=== PATIENT | male | born 1980 | race Caucasian/White ===

== ENCOUNTER 2017-08-29 09:55 | Emergency (ER) | payer OTHER ==
[2017-08-29 10:20] LABS: ABS Basophils 0.1 10^3/ul (0-0.2); ABS Eosinophils 0.2 10^3/ul (0-0.6); ABS Lymphocytes 1.8 10^3/ul (1.0-4.8); ABS Monocytes 0.5 10^3/ul (0-0.8); ABS Neutrophils 3.7 10^3/ul (1.5-7.7); ABS Nucleated RBC 0 10^3/ul; Eosinophil % 2.9 % (0-6); Hematocrit 45 % (42-52); Hemoglobin 15.5 g/dl (14.0-18.0); Lymphocyte % 28.1 % (25-47); Mean Corpuscular HGB Conc 35 g/dl (31-36); Mean Corpuscular Hemoglobin 29 pg (27-31); Mean Corpuscular Volume 84 fL (80-94); Mean Platelet Volume 8.7 um3 (7.4-10.4); Nucleated Red Blood Cells % 0.1; Platelet Count 200 10^3/ul (150-450); Red Blood Count 5.33 10^6/ul (4.00-5.40); Red Cell Distribution Width 14 % (10.5-15); White Blood Count 6.3 10^3/ul (3.5-10.8)
--- NOTE | 2017-08-29 10:26 | ED ---
HPI Chest Pain - HPI Summary HPI Summary: This patient is a 36 year old M presenting to ED with a chief complaint of chest pain/tightness since 1929 last night. The patient flew in from [place] (spent 2 days there) and went swimming in [facility] with his family. The patient was having dinner at home during onset. The CC is described as constant, non-radiating, racing HR, feels like heart burn, heart fluttering, fast half beats in between beats, and it felt like muscle spasms in my abdomen. The patient rates the pain 2/10 in severity. Symptoms aggravated by nothing. Symptoms alleviated by nothing. 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 He reports ability to do strenuous exercise but still feels tachycardic. Patient denies SOB, abdominal pain, nausea , calf pain/leg pain, and DE LEON. He reports he has had no prior episodes similar to this. Current vitals include 91 BPM, 98 O2 sat, and BP 145/82. Home Medications Medication Instructions Recorded Confirmed Type Aspirin/Acetaminophen/Caffeine 2 each PO Q12HR PRN 08/29/17 08/29/17 History [Excedrin Migraine Caplet] - History of Current Complaint Chief Complaint: EDChestPainROMI Time Seen by Provider: 08/29/17 10:04 Hx Obtained From: Patient Onset/Duration: Started Days Ago - 1929 yesterday, Still Present Timing: Constant, Lasting Days - 1929 yesterday Initial Severity: Mild Current Severity: Mild Pain Intensity: 2 Pain Scale Used: 0-10 Numeric Chest Pain Radiates: No Character: Tightness Aggravating Factor(s): Nothing Alleviating Factor(s): Nothing Associated Signs and Symptoms: Positive: Other: - Patient reports light- headedness, 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 He reports ability to do strenuous exercise but still feels tachycardic. Patient denies SOB, abdominal, nausea, calf pain/leg pain, and DE LEON. - Allergy/Home Medications Allergies/Adverse Reactions: Allergies Allergy/AdvReac Type Severity Reaction Status Date / Time No Known Allergies Allergy Verified 08/29/17 09:57 Home Medications: Home Medications Aspirin/Acetaminophen/Caffeine [Excedrin Migraine Caplet] 2 each PO Q12HR PRN [History Confirmed 08/29/17] PMH/Surg Hx/FS Hx/Imm Hx Endocrine/Hematology History: Denies: Hx Diabetes Cardiovascular History: Denies: Hx Coronary Artery Disease, Hx Hypertension Neurological History: Reports: Hx Migraine Infectious Disease History: No Infectious Disease History: Denies: Traveled Outside the [place] in Last 30 Days - Family History Known Family History: Positive: Other Family History: maternal grandfather - heart valve replacement; denies heart disease in the family - Social History Occupation: Employed Full-time Lives: With Family Alcohol Use: None Hx Substance Use: No Hx Tobacco Use: No Review of Systems Positive: Chest Pain - tightness, Other - tachycardic; constant, non-radiating, racing HR, feels like heart burn, heart fluttering, fast half beats in between beats Negative: Shortness Of Breath Negative: Abdominal Pain, Nausea Positive: Other - multiple lipomas on his bilateral forearms, stubbed toe; denies calf pain/leg pain Neurological: Other - light-headedness Negative: Headache All Other Systems Reviewed And Are Negative: Yes Physical Exam - Summary Physical Exam Summary: Appearance: Well-appearing, moderate pain distress, well-nourished, HR 90-120s Skin: Warm, color reflects adequate perfusion, dry Head: Normal Head/Face inspection, atraumatic Eyes: Conjunctiva clear ENT: Normal inspection Neck: Supple, no nodes, no JVD Respiratory: Lungs clear, normal breath sounds, no respiratory distress Cardio: RRR, No murmur, pulses normal, brisk capillary refill Abdomen: Soft, nontender Bowel sounds: Present Musculoskeletal: Strength Intact/ROM intact, no calf tenderness, no edema. Multiple lipoma on bilateral forearm (most 3cm, max 5 cm) Psychological: Normal Neuro: Alert, muscle tone normal, no focal deficit Triage Information Reviewed: Yes Vital Signs On Initial Exam: Initial Vitals Temp Pulse Resp BP Pulse Ox 98.4 F 119 16 129/95 98 08/29/17 09:57 08/29/17 09:57 08/29/17 09:57 08/29/17 09:57 08/29/17 09:57 Vital Signs Reviewed: Yes Diagnostics - Vital Signs Vital Signs Temp Pulse Resp BP Pulse Ox 08/29/17 09:57 98.4 F 119 16 129/95 98 - Laboratory Result Diagrams: 08/29/17 10:10 08/29/17 10:10 Lab Statement: Any lab studies that have been ordered have been reviewed, and results considered in the medical decision making process. - Radiology CXR Radiology Interpretation Completed By: Radiologist - No evidence for acute intrathoracic disease. ED physician has reviewed this radiology report. CTA chest Radiology Interpretation Completed By: Radiologist - No evidence for pulmonary embolism. Low suspicion 4 mm subpleural nodule at the anteromedial basal segment of the LEFT lower lobe. Consider noncontrast CT follow-up in 6 months in setting of risk factors for bronchogenic carcinoma or 12 months in absence of significant risk factors for bronchogenic carcinoma. ED physician has reviewed this radiology report. - EKG 1005 Cardiac Rate: Other Rate - Afib 108 BPM EKG Rhythm: Atrial Fibrillation ST Segment: Non-Specific Ectopy: None EKG Interpretation: normal IVCT, normal QTc, normal axis EKG Comparison: Other - no prior to compare Re-Evaluation - Re-Evaluation First Eval Re-Evaluation Time: 11:15 Comment: Dr. Mathis will see him in the ED. Second Eval Re-Evaluation Time: 12:29 Comment: The patient currently has no CP. Discussed findings of pulmonary nodules. Discussed discharge plan with the patient. The patient understands and agrees. Chest Pain Course/Dx - Course Assessment/Plan: CXR reveals no evidence for acute intrathoracic disease. CTA chest reveals no evidence for pulmonary embolism. Low suspicion 4 mm subpleural nodule at the anteromedial basal segment of the LEFT lower lobe. Consider noncontrast CT follow-up in 6 months in setting of risk factors for bronchogenic carcinoma or 12 months in absence of significant risk factors for bronchogenic carcinoma. Consulted Dr. Mathis at 1113 who will see the patient in the ED. High blood pressure noted. Pt medications reviewed this visit. The patient will be discharged with instructions to follow up with Dr. Hawkins. The patient is agreeable with this plan. - Chest Pain Differential Diagnosis/HQI/PQRI: Other: - elevated blood pressure without diagnosis of hypertension, New onset afib - Diagnoses Provider Diagnoses: Elevated blood pressure reading without diagnosis of hypertension, New onset a- fib - Provider Notifications Discussed Care Of Patient With: Sheba Mathis Time Discussed With Above Provider: 11:13 Instructed by Provider To: Other - Consulted Dr. Mathis at 1113 who will see the patient in the ED. Discharge - Sign-Out/Discharge Documenting (check all that apply): Patient Departure - Discharge Plan Condition: Good Disposition: HOME Prescriptions: Apixaban* [Eliquis*] 5 mg PO BID #14 tab Metoprolol Tartrate TAB* [Lopressor TAB*] 12.5 mg PO BID #14 tab Patient Education Materials: A-fib (Atrial Fibrillation) (GEN) Referrals: Raji Hawkins MD [Medical Doctor] - 08/30/17 12:45 pm (Medical Office Building [address] (Office at the hospital)) Petros Kent MD [Primary Care Provider] - Additional Instructions: 1. Activity as tolerated. 2. Return to the ER if you pass out, are significantly lightheaded or have any other concerning issues. 3. Follow up with Dr. Hawkins as scheduled and with Dr. Kent in the next 1-2 weeks.
[2017-08-29 10:31] LABS: INR 0.91 (0.77-1.02)
[2017-08-29 10:40] LABS: EGFR Non-African American 135.8 (>60)
[2017-08-29] MEDS ORDERED: Iohexol 350* (CONTRAST) 500 ML MDV IV ONE (10:47)
--- NOTE | 2017-08-29 11:01 | RAD ---
Indication: Chest pain/tightness. Palpitations. Comparison: No relevant prior exams available on the [facility] PACS for comparison. Technique: Upright AP 1019 hours Report: Clear lungs and pleural spaces. Negative for pneumothorax. The heart, pulmonary vasculature, and mediastinal contours are unremarkable. Unremarkable osseous structures and soft tissue contours. IMPRESSION: #. No evidence for acute intrathoracic disease.
--- NOTE | 2017-08-29 11:40 | RAD ---
INDICATION: New onset atrial fibrillation. Recent air travel. Chest tightness and pain. Palpitations. Assess for PE. COMPARISON: August 29, 2017 chest radiograph TECHNIQUE: Multidetector CT images were obtained from the lung apices to the upper abdomen with 80 mL Omnipaque 350 IV contrast. Pulmonary angiogram protocol. Multiplanar reformation including with maximum intensity projection. REPORT: 4 mm noncalcified subpleural nodule at the anteromedial basal segment of the LEFT lower lobe peripherally reference image 47. The lungs and pleural spaces are otherwise clear. Normal variant residual thymic tissue at the anterior mediastinum. Negative for thoracic lymphadenopathy, cardiomegaly, pericardial effusion. Motion artifact mildly degrades image quality of the CT pulmonary angiogram particularly at the LEFT lower lobe. No compelling filling defects are identified within the main to segmental and subsegmental pulmonary arteries to indicate pulmonary embolism. Limited images through the upper abdomen are remarkable for a parapelvic cyst at the RIGHT kidney and small cortical cyst at the LEFT kidney. 14.5 cm cephalocaudal mildly enlarged spleen. Negative for suspicious thoracic osseous lesions. IMPRESSION: #. No evidence for pulmonary embolism. #. Low suspicion 4 mm subpleural nodule at the anteromedial basal segment of the LEFT lower lobe. Consider noncontrast CT follow-up in 6 months in setting of risk factors for bronchogenic carcinoma or 12 months in absence of significant risk factors for bronchogenic carcinoma.
[2017-08-29] MEDS ORDERED: Metoprolol Tartrate TAB* 25 MG PO ONE (11:56)
[2017-08-29] MEDS ORDERED: Apixaban* 5 MG TAB PO ONE (11:57)
[2017-08-29 13:04] VITALS: BP 138/95
--- NOTE | 2017-08-30 12:15 | CONS ---
CC: Dr. Kent; Dr. Hawkins * CONSULTATION REPORT: DATE OF CONSULT: 08/29/17 - EMERGENCY DEPT PRIMARY CARE PROVIDER: Dr. Kent. CHIEF COMPLAINT: Palpitations and pressure within the chest. HISTORY OF PRESENT ILLNESS: Mr. Kuhn is a 36-year-old male, who approximately a week and a half ago flew out to [place]. He remained in [place] for approximately 1 week. While there, he did do some hiking at altitude. Approximately 48 hours prior to presentation, he flew to a wedding and 48 hours after that, he flew home. The patient was swimming in the [place] with his child at approximately 5 p.m. on the night prior to ER evaluation and when he got out of the [place], he noted that his lower chest looked like he was having muscle spasms in the subxiphoid area. The patient also felt that his heart was racing and somewhat irregular. He felt a slight pressure within his chest, but denied any pain. The patient denied any lightheadedness associated with this. The patient did have 1 episode where he bent down and then stood up quickly and with this, he felt more dizzy than he typically would. Because of the continued palpitations, the patient presented to the emergency room for evaluation. At this point, the patient continues to feel an irregular heart rate. He denies any pain. He denies any shortness of breath. Outside of the irregular heartbeat, the patient feels well. PAST MEDICAL HISTORY: Migraines. PAST SURGICAL HISTORY: Vasectomy, wisdom teeth extraction. MEDICATIONS: Excedrin Migraine p.r.n. ALLERGIES: No known drug allergies. FAMILY HISTORY: Mom and dad are both living and healthy. SOCIAL HISTORY: The patient does not smoke. He drinks alcohol on occasion. He did have 1-1/2 alcoholic beverages approximately 24 hours prior to this episode. He is . REVIEW OF SYSTEMS: A complete 11-system review of systems was obtained. Pertinent positives and negatives as per HPI and otherwise negative. PHYSICAL EXAM: Blood pressure 134/88, pulse 87, respirations 20, temp 98.4, and O2 sat 98% on room air. General: The patient is a well-developed, young, thin male sitting up in the stretcher, in no acute distress. HEENT: Pupils are equal and round. Extraocular muscles are intact. Oropharynx is clear. Oral mucosa is moist. There is no submandibular, cervical, or supraclavicular adenopathy. Thyroid is not enlarged. No thyroid nodules noted. Cardiac: Normal S1 and S2. Heart rate is irregularly irregular, mildly tachycardic. There is no lower extremity edema. Pulmonary: Lungs are clear to auscultation bilaterally. Abdomen: Bowel sounds present. Abdomen is soft, nontender, and nondistended. Musculoskeletal: There is no cyanosis or clubbing of the digits. There is full active range of motion of all 4 extremities. Skin is warm and dry. There are no rashes. Neuro: Cranial nerves II through XII are grossly intact. Sensation is intact to light touch throughout. Strength is 5/5 and symmetrical in the upper and lower extremities bilaterally. Psych: The patient is alert and oriented x3. Affect appears appropriate. DIAGNOSTIC STUDIES/LAB DATA: WBC 6.3, hemoglobin 15.5, hematocrit 45, platelets 200. INR 0.91, D-dimer less than 200. Sodium 139, potassium 3.9, chloride 106, CO2 of 24, BUN 18, creatinine 0.66, glucose 104, lactic acid 0.6, calcium 9.3, magnesium 1.9. Bilirubin 0.8, AST 31, ALT 63, alk phos 63. CPK 47 , CK-MB 0.7. Troponin 0. BNP 275. Albumin 4.4. EKG reveals atrial fibrillation with a rate of 108. Chest x-ray: No evidence for acute intrathoracic disease. CTA chest: No evidence for pulmonary embolism. There is a low suspicion 4-mm subpleural nodule at the anteromedial basal segment of the left lower lobe. Noncontrast CT followup should be obtained in 12 months as there are no significant risk factors for bronchogenic carcinoma. ASSESSMENT AND PLAN: Mr. Kuhn is a 36-year-old healthy male, who presents to the emergency room in atrial fibrillation with rapid ventricular rate. 1. Atrial fibrillation with rapid ventricular rate. At this point, the patient is hemodynamically stable. He is not significantly symptomatic from the atrial fibrillation. The patient has not been treated with any medications in the emergency room at this point. The patient will be started on metoprolol tartrate 12.5 mg p.o. twice daily and Eliquis 5 mg p.o. twice daily. I spoke with Dr. Hawkins, who is willing to see the patient in consultation as an outpatient on 08/30/17 at 12:45 p.m. The patient is in agreement with the plan to be discharged from the emergency room and follow up with Dr. Hawkins. The patient has been instructed to return to the emergency room if he were to have any episodes of loss of consciousness, dizziness, or any other concerning symptoms. 2. Pulmonary nodule. I have informed the patient of the 4-mm pulmonary nodule. I have also explained that he should have a followup CT in approximately 12 months to ensure stability. 3. Migraines. The patient will continue to use intermittent Excedrin Migraine. 4. The patient will be discharged home. [id number]/CPS #: [id number] KAM
== END 2017-08-29 13:02 | disposition home or self-care (01) ==
LOC: ED 09:55
DX: I48.91 Unspecified atrial fibrillation (principal); R03.0 Elevated blood-pressure reading, without diagnosis of hypertension; R91.1 Solitary pulmonary nodule; R42 Dizziness and giddiness; D17.22 Benign lipomatous neoplasm of skin and subcutaneous tissue of left arm; D17.21 Benign lipomatous neoplasm of skin and subcutaneous tissue of right arm; G43.909 Migraine, unspecified, not intractable, without status migrainosus; Z82.49 Family history of ischemic heart disease and other diseases of the circulatory system
CPT/HCPCS: 36415; 71045; 71275; 80053; 82550; 82553; 83605; 83735; 83880; 84443; 84484; 85025; 85379; 85610; 85730; 93005; 99283; Q9967

== ENCOUNTER 2018-11-19 09:38 | Emergency (ER) | payer OTHER ==
[2018-11-19] MEDS ORDERED: NS 0.9% 1000 ML** 1,000 ML IV ONE (09:57)
[2018-11-19 10:16] LABS: ABS Eosinophils 0.1 10^3/ul (0-0.6); ABS Lymphocytes 1.4 10^3/ul (1.0-4.8); ABS Monocytes 0.6 10^3/ul (0-0.8); ABS Neutrophils 2.5 10^3/ul (1.5-7.7); Eosinophil % 3.1 %; Hematocrit 45 % (42-52); Hemoglobin 16.1 g/dL (14.0-18.0); Lymphocyte % 30.7 %; Mean Corpuscular HGB Conc 35 g/dL (31-36); Mean Corpuscular Hemoglobin 30 pg (27-31); Mean Corpuscular Volume 84 fL (80-94); Mean Platelet Volume 8.6 fL (7.4-10.4); Nucleated Red Blood Cells % 0.1; Platelet Count 199 10^3/uL (150-450); Red Blood Count 5.42 10^6 /uL (4.18-5.48); Red Cell Distribution Width 13 % (10-15); White Blood Count 4.7 10^3/uL (3.5-10.8)
[2018-11-19 10:17] LABS: INR 1.01 (0.82-1.09)
--- NOTE | 2018-11-19 10:25 | ED ---
HPI Cardiac - HPI Summary HPI Summary: 38 year old male reports to the ED with a chief complaint of mild burning chest pain starting this morning. His heart felt double timed this morning when he woke up, and he had pain in his chest of severity 2/10. He reports indigestion starting yesterday and intense intestinal pain yesterday. Patient denies pain or tension in his legs. Had very similar symptoms when he had aFib last year. He flew internationally a week ago. Does not smoke, rarely drinks alcohol. Does not do recreational drugs. Medications reviewed. Allergies noted. - History of Current Complaint Chief Complaint: EDDysrhythmPalp Stated Complaint: AFIB PER PT Time Seen by Provider: 11/19/18 10:00 Hx Obtained From: Patient Onset/Duration: Started Hours Ago, Still Present Timing: Constant, Lasting Hours Initial Severity: Mild Current Severity: Mild Pain Intensity: 2 Pain Scale Used: 0-10 Numeric Chest Pain Location: Diffuse Character: Burning Aggravating Factor(s): Nothing Associated Signs and Symptoms: Positive: Chest Pain, Abdominal Pain, Other: - irregular heart rhythm Related History: Similar Episode/Dx as: - Last year afib - Allergy/Home Medications Allergies/Adverse Reactions: Allergies Allergy/AdvReac Type Severity Reaction Status Date / Time No Known Allergies Allergy Verified 11/19/18 10:01 PMH/Surg Hx/FS Hx/Imm Hx Endocrine/Hematology History: Denies: Hx Diabetes Cardiovascular History: Reports: Hx Angina Denies: Hx Coronary Artery Disease, Hx Hypercholesterolemia, Hx Hypertension , Hx Myocardial Infarction, Hx Valvular Heart Disease Respiratory History: Denies: Hx Asthma, Hx Chronic Obstructive Pulmonary Disease (COPD) Neurological History: Reports: Hx Migraine Infectious Disease History: No Infectious Disease History: Denies: Traveled Outside the [place] in Last 30 Days - Family History Known Family History: Positive: Other Family History: maternal grandfather - heart valve replacement; denies heart disease in the family - Social History Alcohol Use: Rare Hx Substance Use: No Substance Use Type: Reports: None Hx Tobacco Use: No Smoking Status (MU): Never Smoked Tobacco Review of Systems Positive: Chest Pain, Other - irregularly irregular heart rhythm Positive: Abdominal Pain Negative: Myalgia, Edema All Other Systems Reviewed And Are Negative: Yes Physical Exam - Summary Physical Exam Summary: Constitutional: Well-developed, Well-nourished, Alert. (-) Distressed Skin: Warm, Dry HENT: Normocephalic; Atraumatic Eyes: Conjunctiva normal Neck: Musculoskeletal ROM normal neck. (-) JVD, (-) Stridor, (-) Tracheal deviation Cardio: Heart sounds normal; Intact distal pulses; Radial pulses are 2+ and symmetric. (-) Murmur. Venous cords palpated. Irregularly irregular heart rhythm. Tachycardic. Pulmonary/Chest wall: Effort normal. (-) Respiratory distress, (-) Wheezes, (-) Rales Abd: Soft, (-) tenderness, (-) Distension, (-) Guarding, (-) Rebound Musculoskeletal: (-) Edema, Good pulses bilaterally in radius, No calf tenderness, No pain with dorsiflexion of foot. Lymph: (-) Cervical adenopathy Neuro: Alert, Oriented x3 Psych: Mood and affect Normal Triage Information Reviewed: Yes Vital Signs On Initial Exam: Initial Vitals Temp Pulse Resp BP Pulse Ox 97.3 F 90 14 131/79 100 11/19/18 09:43 11/19/18 09:43 11/19/18 09:43 11/19/18 09:43 11/19/18 09:43 Vital Signs Reviewed: Yes Procedures - Sedation Patient Received Moderate/Deep Sedation with Procedure: No Diagnostics - Vital Signs Vital Signs Temp Pulse Resp BP Pulse Ox 11/19/18 09:43 97.3 F 90 14 131/79 100 - Laboratory Lab Results: Lab Results 11/19/18 11/19/18 Range/Units 09:59 09:59 WBC 4.7 (3.5-10.8) 10^3/uL RBC 5.42 (4.18-5.48) 10^6 /uL Hgb 16.1 (14.0-18.0) g/dL Hct 45 (42-52) % MCV 84 (80-94) fL MCH 30 (27-31) pg MCHC 35 (31-36) g/dL RDW 13 (10-15) % Plt Count 199 (150-450) 10^3/uL MPV 8.6 (7.4-10.4) fL Neut % (Auto) 53.5 % Lymph % (Auto) 30.7 % Garza % (Auto) 11.8 % Eos % (Auto) 3.1 % Baso % (Auto) 0.9 % Absolute Neuts (auto) 2.5 (1.5-7.7) 10^3/ul Absolute Lymphs (auto) 1.4 (1.0-4.8) 10^3/ul Absolute Monos (auto) 0.6 (0-0.8) 10^3/ul Absolute Eos (auto) 0.1 (0-0.6) 10^3/ul Absolute Basos (auto) 0.0 (0-0.2) 10^3/ul Absolute Nucleated RBC 0.0 10^3/ul Nucleated RBC % 0.1 INR (Anticoag Therapy) 1.01 (0.82-1.09) Result Diagrams: 11/19/18 09:59 11/19/18 09:59 Lab Statement: Any lab studies that have been ordered have been reviewed, and results considered in the medical decision making process. - Radiology CXR Radiology Interpretation Completed By: Radiologist Summary of Radiographic Findings: CXR shows no evidence for active pulmonary disease. An ED physician has reviewed this report. Chest Thoracic XR Radiology Interpretation Completed By: Radiologist Summary of Radiographic Findings: Chest/Thoracic XR shows: 1. NO EVIDENCE FOR PULMONARY EMBOLISM. 2. SMALL LEFT LOWER LOBE PULMONARY NODULE, UNCHANGED. IF THE PATIENT HAS RISK FACTORS. RECOMMEND A FOLLOW-UP LOW-DOSE NONCONTRAST CT OF THE CHEST IN ONE YEARS TIME. 3. SPLENOMEGALY, UNCHANGED. An ED physician has reviewed this report. - EKG 938 Cardiac Rate: Other Rate - A fib 124 EKG Rhythm: Atrial Fibrillation Summary of EKG Findings: EKG at 938 shows atrial fibrilation at 124 bpm. Re-Evaluation - Re-Evaluation First Eval Re-Evaluation Time: 12:23 Change: Improved Comment: Heart rate less than 100, we will give the patient PO metoprolol and discharge. Disposition - Course Course Of Treatment: Patient presented with atrial fibrillation and RVR. Patient has a history of atrial fibrillation and was on metoprolol and eliquis for roughly 1 month last year. Patient did have a international flight roughly 1 week ago so he had a PE risk factor. Patient had an EKG which showed atrial relation. Patient had a CTA which showed no evidence of PE. Patient's pulmonary nodule is unchanged and he does not need follow-up for that per radiology as he has no risk factors. Patient's blood work was grossly unremarkable except for a magnesium of 1.8. Patient was given 2 g of IV magnesium. Patient was given 10 mg of IV diltiazem with improvement in his heart rate. Patient was restarted on his metoprolol and given a dose here. Patient was given cardiology follow-up. - Diagnoses Provider Diagnoses: Atrial fibrillation with RVR, Palpitations - Critical Care Time Critical Care Time: 30-74 min Discharge ED - Sign-Out/Discharge Documenting (check all that apply): Patient Departure - Discharge - Discharge Plan Condition: Stable Disposition: HOME Prescriptions: Aspirin TAB* [Aspirin 325 MG TAB*] 325 mg PO DAILY 30 Days #30 tab Metoprolol Tartrate TAB* [Lopressor TAB*] 12.5 mg PO BID 30 Days #60 tab Patient Education Materials: A-fib (Atrial Fibrillation) (ED) Referrals: Petros Kent MD [Primary Care Provider] - Jose Manuel Mauricio MD [Medical Doctor] - Additional Instructions: Start your metoprolol and aspirin. Follow up with your primary care provider in 2-3 days. Return to the ED if you have worsening chest pain, irregularly irregular heart rhythm, or shortness of breath. - Billing Disposition and Condition Condition: STABLE Disposition: Home - Attestation Statements Document Initiated by Scribe: Yes Documenting Scribe: Tirso Peterson Provider For Whom Kamryn is Documenting (Include Credential): Samuel Issa MD. Scribe Attestation: Tirso Davenport, scribed for Samuel Issa MD. on 11/19/18 at 2038. Scribe Documentation Reviewed: Yes Provider Attestation: The documentation as recorded by the scribTirso zuñiga accurately reflects the service I personally performed and the decisions made by , Samuel Issa MD. Status of Scribe Document: Viewed
[2018-11-19 10:29] LABS: Albumin 4.5 g/dL (3.2-5.2); Albumin/Globulin Ratio 1.9 (1-3); BUN/Creatinine Ratio 20.9 (8-20); Calcium 9.3 mg/dL (8.6-10.3); EGFR African American 159.8 (>60); EGFR Non-African American 132.1 (>60); Globulin 2.4 g/dL (2-4); Magnesium 1.8 mg/dL (1.9-2.7); Total Bilirubin 0.7 mg/dL (0.2-1.0); Total Protein 6.9 g/dL (6.4-8.9)
[2018-11-19] MEDS ORDERED: Magnesium Sulfate 2 GM IV* 2 GM/50 ML BAG IVPB ONE (10:34)
[2018-11-19 10:50] LABS: TSH (Thyroid Stimulating Horm) 0.9 mcIU/mL (0.34-5.60)
[2018-11-19 10:52] LABS: Free T4 1.04 ng/dL (0.61-1.12)
[2018-11-19] MEDS ORDERED: Iohexol 350* (CONTRAST) 500 ML MDV IV ONE (11:42)
[2018-11-19] MEDS ORDERED: Diltiazem IV push/loading dose 5 MG/ML 5 ML vial (25 mg) IV SLOW PU ONE (11:59)
[2018-11-19] MEDS ORDERED: Metoprolol Tartrate TAB* 25 MG PO ONE (12:24)
[2018-11-19] MEDS ORDERED: Aspirin EC TAB* 325 MG PO ONE (12:25)
[2018-11-19 12:54] VITALS: BP 137/90
== END 2018-11-19 12:49 | disposition home or self-care (01) ==
LOC: ED 09:38
DX: I48.91 Unspecified atrial fibrillation (principal); R00.2 Palpitations; R91.1 Solitary pulmonary nodule; R16.1 Splenomegaly, not elsewhere classified
CPT/HCPCS: 36415; 71046; 71275; 80053; 82550; 83735; 84439; 84443; 84484; 85025; 85610; 93005; 96361; 96365; 96375; 99283; A9270-GY; J3475; Q9967